=== PATIENT | female | born 1970 ===

== ENCOUNTER 2018-12-01 17:30 | Emergency (ER) | payer OTHER ==
[~2018-12-01] VITALS: Ht 165.1 cm; Wt 90.7 kg
[~2018-12-01 17:30] MED LIST: ATARAX25 MG PO; CATAFLAM50 MG PO; FLEXERIL5 MG PO; FLONASE16 GM NS; MAXITROL EYE DRO5 ML OP; TOBREX5 ML OP; ZITHROMAX TRI-500 MG PO; ZYRTEC10 MG PO
== END 2018-12-01 20:44 | disposition home or self-care (01) ==
LOC: ER 17:30
DX: J11.1 Influenza due to unidentified influenza virus with other respiratory manifestations (principal); B34.9 Viral infection, unspecified